=== PATIENT | female | born 1935 | race Caucasian/White ===

== ENCOUNTER 2017-04-28 09:54 | Outpatient (CLI) | payer MEDICARE, BC ==
--- NOTE | 2017-04-14 17:27 | RAD ---
LEFT HIP TWO VIEWS HISTORY: Fell 3 months ago. Left hip pain. COMPARISON: None. FINDINGS: There is no acute fracture or malalignment. The obturator ring is intact. SI joints are intact as well as the pubic symphysis. There is calcified granuloma projecting over the left thigh. IMPRESSION: No acute fracture or malalignment. No evidence of a healing fracture. POS: [facility]
--- NOTE | 2017-04-28 12:09 | CT ---
CT ABDOMEN AND PELVIS WITH IV AND ORAL CONTRAST: HISTORY: Colon cancer with metastases. Restaging. COMPARISON: 01/17/17. FINDINGS: Mild scarring remains at the lung bases. Calcified granulomata within the liver and spleen are cons istent with healed granulomatous disease. 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 The lobular partially cystic adenopathy at the right iliac bifurcation is 3.9 x 3.9 x 3.4 cm greates t diameters, unchanged in appearance from the previous exam. The tiny mesenteric nodule just deep t o the umbilicus is stable. No new adenopathy or mesenteric nodules are apparent. Postoperative and degenerative changes of the lumbar spine are again demonstrated. There is calcifi cation in the arterial structures. IMPRESSION: Stable CT appearance of the cystic right iliac and mesenteric adenopathy. No new abnormalities are apparent. POS: [facility]
== END 2017-04-28 09:55 | disposition home or self-care (01) ==
LOC: SCSCT 09:54
PROVIDERS: ATTEND Internal Medicine Hematology & Oncology
DX: M25.552 Pain in left hip (principal)
CPT/HCPCS: 74177; 80053; 82248; 82378; 83615; 84100; 84550

== ENCOUNTER 2017-04-29 18:00 | Emergency (ER) | payer MEDICARE, BC ==
[2017-04-29 19:04] LABS: Hematocrit 30.1 % (36.0-47.0); Mean Platelet Volume 8.2 fL (7.4-10.4); Red Blood Cell (RBC) Count 3.09 mill/uL (4.20-5.40); White Blood Cell (WBC) Count 2.1 thou/uL (4.8-10.8)
[2017-04-29 19:18] LABS: ALT (SGPT) 22 U/L (8-55); AST (SGOT) 40 U/L (5-34); Alkaline Phosphatase 98 U/L (40-150); Anion Gap 17 mmol/L (10-20); BUN (Urea Nitrogen) 31 mg/dL (9.8-20.1); Bilirubin, Total 0.6 mg/dL (0.2-1.2); Calc. Creatinine Clearance 0 mL/min (70-130); Carbon Dioxide 21 mmol/L (23-31); Chloride 108 mmol/L (98-107); Estimated GFR-MDRD 50; Globulin 2.8 g/dL (2.4-3.5); Protein, Total 6.4 g/dL (6.0-8.3)
[2017-04-29 19:33] LABS: #Lymphocytes 0.5 thou/uL (1.20-3.40); #Monocytes 0.1 thou/uL (0.11-0.59); #Neutrophils 1.5 thou/uL (1.40-6.50); %Eosinophils 0.4 % (0.0-10.0); %Lymphocytes 24.1 % (21.0-51.0); %Monocytes 3.6 % (0.0-10.0); Anisocytosis SLIGHT = 6-15 cells (100X) (0-5/hpf); Hypochromia SLIGHT = 6-15 cells (100X) (0-5/hpf)
[2017-04-29 20:50] LABS: Bilirubin Negative (Negative); Blood, Urine Negative (Negative); Glucose, Urine (Dipstick) Negative (Negative); Ketone, Urine Negative (Negative); Nitrite Negative (Negative); Protein, Urine (Dipstick) Trace mg/dL (Neg-Trace); Urobilinogen 0.2 mg/dL (0.2-1.0)
[2017-04-29 20:52] LABS: Bacteria/HPF 1+ HPF (None Seen); Hyaline Casts/LPF 0-3 HYALINE CAST LPF (0-3 Hyaline)
--- NOTE | 2017-04-29 21:37 | CT ---
BRAIN CT WITHOUT IV CONTRAST 04/29/17 HISTORY: 82-year-old female with altered mental status. Atrophy and chronic white matter ischemic changes are noted. Sinuses and mastoids are clear. Stable appearance from 08/02/15. IMPRESSION: No mass or bleed or other significant acute intracranial process. Stable from prior study. POS: [facility]
--- NOTE | 2017-04-29 22:33 | RAD ---
CHEST ONE VIEW PORTABLE 04/29/17 HISTORY: 82-year-old female with malaise and altered mental status. COMPARISON: 08/18/15. FINDINGS: Right central line and injection port. Cardiomegaly with atherosclerosis of the aorta. Old granuloma tous disease. No confluent pneumonia, overt edema or pleural effusion. IMPRESSION: Cardiomegaly without confluent pneumonia or overt edema. Old granulomatous disease. Atherosclerosis of the aorta. Stable from prior study. POS: [facility]
== END 2017-04-29 21:50 | disposition home or self-care (01) ==
LOC: ERS 18:00
DX: N39.0 Urinary tract infection, site not specified (principal); I10 Essential (primary) hypertension; F32.9 Major depressive disorder, single episode, unspecified; Z86.73 Personal history of transient ischemic attack (TIA), and cerebral infarction without residual deficits; Z79.2 Long term (current) use of antibiotics; Z79.82 Long term (current) use of aspirin; Z79.899 Other long term (current) drug therapy
CPT/HCPCS: 70450; 71010; 80053; 81003; 81015; 82248; 82378; 83615; 84100; 84550; 85025; 96374; J0360

== ENCOUNTER 2017-06-11 09:03 | Day surgery (SDC) | payer MEDICARE, BC ==
[2017-06-11] MEDS ORDERED: Acetaminophen 500 MG TAB PO SCH (12:30)
[2017-06-11] MEDS ORDERED: diphenhydrAMINE 25 MG CAP PO SCH (12:30)
[2017-06-11 15:14] VITALS: BP 175/72; TEMP 98.9
[2017-06-11 16:23] LABS: #Eosinphils 0.1 thou/uL (0.0-0.7); #Lymphocytes 1.2 thou/uL (1.20-3.40); #Monocytes 0.2 thou/uL (0.11-0.59); #Neutrophils 1.7 thou/uL (1.40-6.50); %Lymphocytes 37.6 % (21.0-51.0); %Monocytes 5.6 % (0.0-10.0); Hematocrit 31.8 % (36.0-47.0); Mean Platelet Volume 8.8 fL (7.4-10.4); Red Blood Cell (RBC) Count 3.47 mill/uL (4.20-5.40); White Blood Cell (WBC) Count 3.3 thou/uL (4.8-10.8)
== END 2017-06-11 15:25 | disposition home or self-care (01) ==
LOC: ONC/OP 09:03
PROVIDERS: ATTEND Internal Medicine Hematology & Oncology
PROC: 30233N1 Transfusion of Nonautologous Red Blood Cells into Peripheral Vein, Percutaneous Approach (ICD-10-PCS; principal; 2017-06-11)
DX: D64.9 Anemia, unspecified (principal); D69.59 Other secondary thrombocytopenia; M19.90 Unspecified osteoarthritis, unspecified site; K21.9 Gastro-esophageal reflux disease without esophagitis; H91.90 Unspecified hearing loss, unspecified ear; Z79.82 Long term (current) use of aspirin; Z79.1 Long term (current) use of non-steroidal anti-inflammatories (NSAID); Z79.899 Other long term (current) drug therapy; Z88.2 Allergy status to sulfonamides; Z90.710 Acquired absence of both cervix and uterus; Z90.49 Acquired absence of other specified parts of digestive tract; Z98.890 Other specified postprocedural states; Z86.73 Personal history of transient ischemic attack (TIA), and cerebral infarction without residual deficits; Z85.828 Personal history of other malignant neoplasm of skin; Z85.038 Personal history of other malignant neoplasm of large intestine
CPT/HCPCS: 36430; 85025; 86850; 86900; 86901; P9016

== ENCOUNTER 2017-06-23 09:17 | Inpatient (IN) | payer MEDICARE, BC ==
[2017-06-23 10:20] LABS: #Lymphocytes 0.6 thou/uL (1.20-3.40); #Monocytes 0.6 thou/uL (0.11-0.59); #Neutrophils 4.8 thou/uL (1.40-6.50); %Basophils 0.3 % (0.0-1.0); %Eosinophils 0.2 % (0.0-10.0); %Lymphocytes 10.1 % (21.0-51.0); %Monocytes 10.2 % (0.0-10.0); Hematocrit 35.1 % (36.0-47.0); Mean Platelet Volume 9.4 fL (7.4-10.4); Red Blood Cell (RBC) Count 3.76 mill/uL (4.20-5.40); White Blood Cell (WBC) Count 6.1 thou/uL (4.8-10.8)
--- NOTE | 2017-06-23 10:33 | CT ---
CT HEAD WITHOUT CONTRAST: Date: 06/23/17 Multiple axial tomograms obtained through head without IV enhancement. HISTORY: Fall. Confusion. FINDINGS: Ventricles have normal size and appearance. Moderate chronic ischemic white matter change. Mild corti maria m volume loss. No evidence of acute hemorrhage, mass, or infarct. IMPRESSION: Chronic changes as described. No evidence of acute abnormality. POS: [facility]
[2017-06-23 10:38] LABS: ALT (SGPT) 16 U/L (8-55); AST (SGOT) 28 U/L (5-34); Alkaline Phosphatase 77 U/L (40-150); Anion Gap 9 mmol/L (10-20); BUN (Urea Nitrogen) 20 mg/dL (9.8-20.1); Bilirubin, Total 1.3 mg/dL (0.2-1.2); Calc. Creatinine Clearance 0 mL/min (70-130); Calcium 9.2 mg/dL (7.8-10.44); Carbon Dioxide 26 mmol/L (23-31); Chloride 105 mmol/L (98-107); Estimated GFR-MDRD 76; Globulin 2.5 g/dL (2.4-3.5)
[2017-06-23 10:43] LABS: Troponin I 0.062 ng/mL (< 0.028)
--- NOTE | 2017-06-23 10:53 | RAD ---
EXAM: ONE VIEW CHEST: HISTORY: Altered mental status. COMPARISON: 04/29/17. FINDINGS: Stable right-sided MediPort catheter. Stable calcification in the AP window. Stable atherosclerosis of the aorta. Heart is enlarged. The pulmonary vessels and hilum are normal. Costophrenic angles are clear. No mass. No consolidation. No pneumothorax or osseous abnormalities. Calcified granulo ma in the left lung is again noted. IMPRESSION: 1. Atherosclerosis. 2. No acute cardiopulmonary process. POS: [facility]
--- NOTE | 2017-06-23 10:55 | RAD ---
RIGHT ELBOW 4 VIEWS: HISTORY: Fall. Pain. COMPARISON: None. FINDINGS: No fracture. No cortical irregularity. No periosteal reaction. No significant joint effusion. IMPRESSION: No fracture. POS: [facility]
--- NOTE | 2017-06-23 10:57 | RAD ---
LEFT ANKLE 3 VIEWS: HISTORY: Fall. Pain. COMPARISON: None. FINDINGS: No significant soft tissue swelling. No fracture. Minimal spurring of the calcaneus. Joint space i s preserved. IMPRESSION: Unremarkable left ankle 3 views. POS: [facility]
--- NOTE | 2017-06-23 10:58 | RAD ---
RIGHT ANKLE 3 VIEWS: Date: 06/23/17 HISTORY: Fall. Pain. COMPARISON: None. FINDINGS: Mild lateral soft tissue swelling. Remote avulsive injury at the distal aspect of the lateral malleol us is noted. Acute fracture is not appreciated. No spurring of the calcaneus. IMPRESSION: Lateral soft tissue swelling, without evidence of fracture. POS: [facility]
[2017-06-23 11:32] LABS: Bilirubin Negative (Negative); Blood, Urine Small (Negative); Glucose, Urine (Dipstick) Negative (Negative); Ketone, Urine Negative (Negative); Nitrite Negative (Negative); Protein, Urine (Dipstick) Trace mg/dL (Neg-Trace); Urobilinogen 0.2 mg/dL (0.2-1.0)
[2017-06-23 11:35] LABS: Bacteria/HPF Rare-Few HPF (None Seen); Hyaline Casts/LPF 0-3 HYALINE CAST LPF (0-3 Hyaline); RBC/HPF 0-3 HPF (0-3)
[2017-06-23 14:48] VITALS: BMI 22.9
[2017-06-23 16:11] LABS: Troponin I 0.062 ng/mL (< 0.028)
[2017-06-23] MEDS ORDERED: Zolpidem Tartrate 5 MG TAB PO PRN (17:53)
[2017-06-23] MEDS ORDERED: Acetaminophen 325 MG TAB PO PRN (17:53)
[2017-06-23] MEDS ORDERED: Ondansetron ODT 4 MG TAB PO PRN (17:53)
--- NOTE | 2017-06-23 20:58 | HP ---
DATE OF ADMISSION: 06/23/2017 HISTORY OF PRESENT ILLNESS: The patient is an 82-year-old white female who suffered multiple falls t hrough this past weekend, she was found at home apparently been on the floor for several hours. She had multiple contusions about the head, wrist, ankle, arms. She states she does not actually recall falling. She was confused. The family took her to the nearest emergency room. She was seen and romain luated in the emergency room, remarkably really did not show any significant injuries other than the multiple bruises to the scalp with contusions and swelling as well as bruises to the left and right a rm and elbow, left and right ankle. All laboratory workup was otherwise unremarkable. She has a known history of colon cancer. She has a known history of hypertension. She is currently in the mist of cancer therapy. Otherwise, she notes no other medical complaints. The family has now decided that she needed to have more extensive care at home. She can no longer live by herself, pos sibly looking a senior living versus long-term care at home. Otherwise, no other medical complaint s are noted. ALLERGIES: She is allergic to SULFA. CURRENT MEDICATIONS: Aggrenox 1 capsule b.i.d., Zetia 10 mg daily, metoprolol 50 mg daily, Myrbetriq 50 mg daily, biotin 15550 mcg daily, calcium vitamin D 1 tablet daily, meloxicam 7.5 mg daily, multi vitamin 1 daily, Ocuvite 1 tablet daily, omeprazole 40 mg daily. PAST MEDICAL HISTORY: Significant for the above noted colon cancer surgery. She also has a history of previous TIA. PAST SURGICAL HISTORY: Positive for laparoscopic cholecystectomy, hysterectomy, rotator cuff repair. PAST MEDICAL HISTORY: Positive for chemotherapy for colon cancer, iron deficient anemia, hypertensio n, gastroesophageal reflux disease, osteoarthritis, history of TIA in the past, history of overactive bladder. REVIEW OF SYSTEMS: Gastrointestinal: Negative. Genitourinary: Negative. Cardiovascular: Otherwise negative. Muscul oskeletal: Positive for multiple bruises and contusions as previously noted. PHYSICAL EXAMINATION: VITAL SIGNS: Temperature 97.4, pulse 62, blood pressure 194/79. GENERAL: She is alert, active, in no distress. HEENT: There are multiple contusions about the upper portion of the scalp in the right and left fron kendrick area extending almost to the forehead line. There is no evidence of any palpable masses. There is some bruising noted. Otherwise no other lesions are noted. There is a bruise and contusion noted to the right eye as well. Sclerae and conjunctivae are otherwise clear. NECK: Supple, full range of motion, no masses, no bruits. LUNGS: Clear. HEART: Reveals regular rate and rhythm without murmurs, gallops or rubs. ABDOMEN: Soft, nontender, bowel sounds are present and active. No hepatosplenomegaly is noted. EXTREMITIES: No clubbing, edema or cyanosis. There are multiple bruises noted at the left and right ankle. There is a bruise to the right elbow. NEUROLOGIC: She is alert. She is oriented x3. She is able to move all extremities on command. LABORATORY: Hemoglobin 10.7, hematocrit 35.1, white blood count 6.1. Sodium 136, potassium 4.3, chl oride 105, CO2 of 26, BUN 20, creatinine 0.73. Troponins are indeterminately elevated. Urinalysis o therwise clear. Multiple x-rays of the elbow, ankle and chest x-ray are clear. CT scan of the brain is otherwise normal. IMPRESSION: An 82-year-old female with a known history of colon cancer, is currently undergoing chem otherapy. She has suffered multiple falls with multiple contusions, she is no longer able to provide adequate care for herself. PLAN: The patient will be admitted and placed in for long-term placement either a senior living or long-term care at home. Her family has already considered long-term care, then contacted [facility] to provide that. I am in agreement with that she no longer can live by herself at all. Dora robb discussed with her and the family DNR status. She wishes to be a DNR. She has made this , and this status will be placed at her request.
[2017-06-23] MEDS ORDERED: FLU VACC TS2017-18 (>65YR) 0.5 ML SYRINGE IM ONE (21:00)
[2017-06-23] MEDS: Aggrenox 200-25mg CAP PO SCH (21:00)
--- NOTE | 2017-06-24 07:46 | PRG ---
DATE OF SERVICE: 06/24/2017 Ms. Harris is awake and alert, verbalizes no complaints. She is still probably having some mild pain . She said she slept well last night. PHYSICAL EXAMINATION: VITAL SIGNS: Temperature 97.5, BP 161/65, pulse 71, O2 sats 92% on room air. GENERAL: She appears to be alert, active, does not appear in any distress. She has multiple bruises still about her scalp, left knee and right elbow and ankles. LUNGS: Clear. HEART: Had a regular rate and rhythm with a very soft systolic murmur. IMPRESSION: 1. Status post multiple falls. 2. History of colon cancer. 3. Frailty of age. PLAN: We will wait for case management to come evaluate her for long-term care issues. The family has decided to try to do long-term care at home with in home services versus senior living. Hopefu lly, this can be arranged fairly quickly.
[2017-06-24] MEDS: Aggrenox 200-25mg CAP PO SCH ×2 (08:44→21:12)
[2017-06-24] MEDS: Meloxicam 15 MG TAB PO SCH (08:44)
[2017-06-24] MEDS: Ezetimibe 10 MG TAB PO SCH (08:44)
[2017-06-24] MEDS: Calcium Carbonate + Vit D 1 TAB PO SCH (08:44)
[2017-06-24] MEDS: Multivit, Therapeutic 1 TAB PO SCH (08:45)
[2017-06-24] MEDS: Vit A,C & E/Lutein/Minerals Tablet PO SCH (08:45)
[2017-06-24] MEDS ORDERED: Non-Formulary Item 1 EACH (Biotin [Mega Biotin] 10,000 MCG) PO SCH (09:00)
[2017-06-24] MEDS ORDERED: Loperamide HCl 2 MG CAP PO PRN (13:29)
[2017-06-24] MEDS: cloNIDine 0.1 MG TAB PO PRN (17:38)
[2017-06-25] MEDS: cloNIDine 0.1 MG TAB PO PRN (00:45)
--- NOTE | 2017-06-25 07:54 | PRG ---
DATE OF SERVICE: 06/25/2017 SUBJECTIVE: Ms. Harris is awake and alert. She is sitting in the chair, eating breakfast. She note d that she has trouble with her blood pressure last night. PHYSICAL EXAMINATION: VITAL SIGNS: Her blood pressure is 187/88, temperature 98.4, O2 sats 95%. LUNGS: Clear. HEART: Reveals no murmur. IMPRESSION: 1. Status post multiple falls. 2. History of colon cancer. 3. Hypertension. PLAN: 1. We will add amlodipine 2.5 mg p.o. daily to her antihypertensive regimen. 2. She possibly could be discharged today. We will check with the case management to see if all soc ial services has been put in place for her to be discharged.
[2017-06-25] MEDS: Vit A,C & E/Lutein/Minerals Tablet PO SCH (08:42)
[2017-06-25] MEDS: Multivit, Therapeutic 1 TAB PO SCH (08:42)
[2017-06-25] MEDS: Aggrenox 200-25mg CAP PO SCH (08:42)
[2017-06-25] MEDS: Calcium Carbonate + Vit D 1 TAB PO SCH (08:42)
[2017-06-25] MEDS: Ezetimibe 10 MG TAB PO SCH (08:42)
[2017-06-25] MEDS: Meloxicam 15 MG TAB PO SCH (08:44)
[2017-06-25 08:48] VITALS: BP 146/71; TEMP 97.7
[2017-06-25] MEDS ORDERED: Amlodipine 5 MG TAB PO SCH (09:00)
== END 2017-06-25 15:39 | disposition home health service (06) | DRG 376 ==
LOC: ERS 09:17 → T4-A 11:25
PROVIDERS: ADMIT Family Medicine; ATTEND Family Medicine
DX: C18.9 Malignant neoplasm of colon, unspecified (principal); I10 Essential (primary) hypertension; Z88.2 Allergy status to sulfonamides; Z86.73 Personal history of transient ischemic attack (TIA), and cerebral infarction without residual deficits; Z90.49 Acquired absence of other specified parts of digestive tract; Z90.710 Acquired absence of both cervix and uterus; S00.03XA Contusion of scalp, initial encounter; S00.83XA Contusion of other part of head, initial encounter; S60.219A Contusion of unspecified wrist, initial encounter; S50.02XA Contusion of left elbow, initial encounter; S50.01XA Contusion of right elbow, initial encounter; S90.02XA Contusion of left ankle, initial encounter; S90.01XA Contusion of right ankle, initial encounter; H11.31 Conjunctival hemorrhage, right eye; Z66 Do not resuscitate; Z87.891 Personal history of nicotine dependence
CPT/HCPCS: 36415; 70450; 71010; 80053; 81003; 81015; 82553; 84484; 85025; 93005; G8978-GP-CJ; G8979-GP-CI

== ENCOUNTER 2017-07-02 08:00 | Outpatient (CLI) | payer MEDICARE, BC | END 2017-07-02 08:01 | disposition home or self-care (01) | LOC: BICMAMMO 08:00 | PROVIDERS: ATTEND Family Medicine | DX: Z53.9 Procedure and treatment not carried out, unspecified reason (principal) ==

== ENCOUNTER 2017-09-04 08:15 | Outpatient (CLI) | payer MEDICARE, BC ==
[2017-09-04] MEDS ORDERED: Iopamidol 370 76% 100 ML VIAL ONE (09:00)
--- NOTE | 2017-09-04 11:45 | CT ---
EXAM: ABDOMEN CT WITH CONTRAST PELVIC CT WITH CONTRAST: HISTORY: Cecal cancer. Elevated CEA. COMPARISON: 04/28/17. TECHNIQUE: A postcontrast abdomen and pelvic CT are performed in the axial plane. Coronal reformatted images ar javier submitted for interpretation. FINDINGS: ABDOMEN CT: Calcified granuloma in the middle lobe. Scarring or atelectasis in the left lower lobe. Normal heart size. No significant pericardial fluid. Calcification of the aortic valve and mitral v alve. Atherosclerosis of a nonaneurysmal aorta. No periaortic fat stranding. Symmetric attenuation of the psoas muscles. No gastrohepatic, retrocrural, or periportal lymphadenopathy. The intra- and extrahepatic portal vein is patent. Liver, spleen, pancreas, and adrenal glands have appropriate attenuation. Subcentimeter hypodensity in the hepatic dome cannot be further characterized. Calcified granulomatous lesions in the spleen a nd liver are noted. The pancreas has mild atrophy. No inflammatory change. Symmetric attenuation o f the adrenal glands. Unremarkable gallbladder. Symmetric enhancement of the kidneys. Bilaterally, no obstructive uropathy. 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 There is no mesenteric mass, free air, or free fluid. There are enlarged right lower quadrant mesenteric lymph nodes which are similar to the previous exam ination. The largest lymph node currently measures 1.6 x 1.4 cm (previously measuring 1.5 x 1.7 cm). Gastric mucosa, duodenum, and multiple normal-caliber small bowel loops are noted. The residual colo n is unremarkable. No evidence of a colonic mass. PELVIC CT: The urinary bladder and left hemipelvis are unremarkable. Redemonstration of hypodense masses along the right external iliac chain. This conglomeration of mass currently measures 3.2 x 4.0 cm (previou sly measuring 3.4 x 3.9 cm. Additional masses are not appreciated. There are no lytic or blastic lesions in the osseous structures. Stable degenerative change. IMPRESSION: Redemonstration of lymphadenopathy in the right lower quadrant and stable hypodensities in the right hemipelvis. No appreciable change when compared to the prior examination. POS: [facility]
== END 2017-09-04 08:16 | disposition home or self-care (01) ==
LOC: SCSCT 08:15
PROVIDERS: ATTEND Internal Medicine Hematology & Oncology
DX: C18.0 Malignant neoplasm of cecum (principal); R59.0 Localized enlarged lymph nodes
CPT/HCPCS: 74177

== ENCOUNTER 2017-10-28 14:52 | Outpatient (CLI) | payer MEDICARE, BC ==
--- NOTE | 2017-10-28 16:15 | RAD ---
LUMBAR SPINE FOUR VIEWS: History: Low back pain since last week. Comparison: None. FINDINGS: There are five lumbar type vertebral bodies. No fracture. There are degenerative changes of the poste rior elements of L4-5 and L5-S1. In the neutral position there is 3.9 mm anterolisthesis of L4 upon L 5, 2.8 mm anterolisthesis of L4 upon L5, 6.7 mm anterolisthesis of L5 upon S1. Upon flexion there is 4 mm anterolisthesis of L3 upon L4. 6.5 mm anterolisthesis of L4 upon L5. 1.0 cm L5 upon S1. Upon extension there is 4.7 mm anterolisthesis 7.5 mm of L5 upon S1. IMPRESSION: Spondylolisthesis as above. POS: [facility]
== END 2017-10-28 14:53 | disposition home or self-care (01) ==
LOC: SCSRAD 14:52
PROVIDERS: ATTEND Family Medicine
DX: S33.6XXA Sprain of sacroiliac joint, initial encounter (principal); M43.16 Spondylolisthesis, lumbar region
CPT/HCPCS: 72100

== ENCOUNTER 2017-12-08 08:24 | Outpatient (CLI) | payer MEDICARE, BC ==
[2017-12-08] MEDS ORDERED: Iopamidol 370 76% 100 ML VIAL ONE (09:00)
--- NOTE | 2017-12-08 12:00 | CT ---
CT ABDOMEN AND PELVIS WITH IV AND ORAL CONTRAST: Date: 12/08/17 HISTORY: Colon cancer, rising CEA. COMPARISON: 09/04/17 and 04/28/17. FINDINGS: The lung bases are unremarkable. There are calcified granulomas in the liver and spleen. A tiny low d ensity lesion in the posterior segment of the right lobe of the liver is unchanged. No new liver lesi ons are identified. No calcified gallstones are seen. The pancreas is atrophic. Adrenal glands are n ormal. Duplicated collecting systems in the kidneys are again seen without evidence of renal mass or hydroureteronephrosis. No free air or free fluid is seen in the abdomen or pelvis. The largest right lower quadrant mesenteric lymph node measures 11.0 mm. Cystic lymphadenopathy in th e right iliac bifurcation lymphadenopathy shows interval improvement and measures 3.7 x 2.1 cm. Promi nent omental lymph nodes are stable. Fat-containing umbilical hernia again seen. The small bowel loops are not abnormally dilated. There is sigmoid diverticulosis. There are vascular calcifications without evidence of aneurysmal dilatation of the abdominal aorta. Degenerative change s are present in the spine. No osteolytic or osteoblastic lesions are identified. IMPRESSION: Mild interval reduction in the size of the right iliac and mesenteric lymphadenopathy since 09/04/17. POS: [facility]
== END 2017-12-08 08:25 | disposition home or self-care (01) ==
LOC: SCSCT 08:24
PROVIDERS: ATTEND Internal Medicine Hematology & Oncology
DX: C18.0 Malignant neoplasm of cecum (principal); R59.1 Generalized enlarged lymph nodes
CPT/HCPCS: 74177

== ENCOUNTER 2018-03-04 08:26 | Outpatient (CLI) | payer MEDICARE, BC ==
[2018-03-04] MEDS ORDERED: Iopamidol 370 76% 100 ML VIAL ONE (09:00)
--- NOTE | 2018-03-04 10:41 | CT ---
CT ABDOMEN AND PELVIS WITH CONTRAST: Date: 03/04/18 Multiple axial tomograms obtained through the abdomen and pelvis with IV enhancement. Oral contrast w as administered. INDICATION: Malignant neoplasm cecum. Follow-up colon cancer. COMPARISON: Recent exam of 12/08/17. FINDINGS: Images through the lung bases show no evidence of infiltrate or effusion. On the first image of the l susana base, there is a tiny, pleural based nodule in the right lateral lower lung measuring in the 2-3 mm range. Liver and splenic calcifications are again noted. A focal area of low attenuation in the superior rig ht lobe of the liver under the diaphragm measuring in the 4-5 mm range is stable from the prior exam. Spleen is otherwise unremarkable. Pancreas unremarkable. Adrenal glands unremarkable. Kidneys again show bilateral double collecting systems. There is no evid ence of hydronephrosis. Small bowel loops are normal. Patient is post right colectomy. Stool throughout the colon with diverticulosis of the sigmoid. Aorta normal caliber. Infraaortic left renal vein is incidentally noted. Umbilical hernia again noted with mesentery herniated through this defect. There are several focal no dular densities within this herniated mesentery which could represent enlarged lymph nodes. These bette ear more prominent than on the prior study, with at least one measuring up to 1.0 cm. There are three or four other small nodular opacities suggesting small lymph nodes within this umbilical hernia. A m esenteric node in the right lower quadrant measures 1.2 cm today, greatest craniocaudal dimension. Pr ior greatest craniocaudal measurement on this node was 1.6 cm. There is at least one adjacent small l ymph node measuring approximately 0.6 cm, which appears unchanged. A small mesenteric lymph node in t he anterior left lower quadrant is unchanged measuring approximately 5.0 mm. The right lower quadrant adenopathy which extends posteriorly to the iliac vessels is again seen. Thi s has a bilobed appearance. The anterior lobe with a focal calcification measured at 2.1 cm greatest dimension today is unchanged from the prior exam. The more posterior lobe of this adenopathy is again seen displacing bowel loops and abutting the psoas muscle laterally and the iliac artery posteriorly . This adenopathy is slightly larger today with coronal measurements recorded at 4.0 x 2.3 cm. Previo us coronal measurements were recorded at 3.0 x 2.1 cm. Osseous structures show severe degenerative changes in the lower lumbar spine. No lytic or blastic le erica identified. IMPRESSION: 1. There are increased number in size of soft tissue nodular opacities in the mesentery within the u mbilical hernia today. Finding would be consistent with enlarging lymph nodes and/or mesenteric impla nts, which have enlarged. 2. The adenopathy in the right lower quadrant is slightly larger in the coronal plane as noted above . 3. The left lower quadrant lymph node is unchanged. A right lower quadrant mesenteric lymph node is slightly smaller today as noted above. 4. Tiny low density focus in the liver is unchanged. POS: [facility]
== END 2018-03-04 08:27 | disposition home or self-care (01) ==
LOC: SCSCT 08:26
PROVIDERS: ATTEND Internal Medicine Hematology & Oncology
DX: C18.0 Malignant neoplasm of cecum (principal); K42.0 Umbilical hernia with obstruction, without gangrene; R59.0 Localized enlarged lymph nodes; R93.2 Abnormal findings on diagnostic imaging of liver and biliary tract; R93.8 Abnormal findings on diagnostic imaging of other specified body structures
CPT/HCPCS: 74177

== ENCOUNTER 2018-07-08 07:27 | Outpatient (CLI) | payer MEDICARE, BC ==
[2018-07-08] MEDS ORDERED: Iopamidol 370 76% 100 ML VIAL ONE (09:00)
--- NOTE | 2018-07-08 09:50 | CT ---
CT ABDOMEN AND PELVIS WITH IV CONTRAST: DATE: 07/08/2018. HISTORY: Malignant neoplasm of cecum. The patient complains of stomach cramping for 2-3 weeks along with cons tipation. The last chemotherapy treatment was on 06/08/2018. COMPARISON: 03/04/2018. FINDINGS: There is a large calcified left hilar lymph node. There are small bilateral pleural effusions which represents in-ventricle change. The punctate approximately 3 mm pulmonary nodule lateral aspect righ t middle lobe is again seen. No additional discrete noncalcified pulmonary nodule is seen at each juliana ng base. There has been interval development of a moderate to large amount of intraperitoneal free fluid seen throughout the abdomen. There are masses seen along the anterior upper abdomen related to peritoneal carcinomatosis. There were masses seen within the anterior abdomen on the prior exam, but the exten t of the peritoneal masses anteriorly has increased from the prior exam. The largest area of omental caking grossly measures 9.1 cm transverse x 1.6 cm AP. There are large heterogeneous lobulated masses seen in the pelvis bilaterally. A large heterogeneous mass on the right measures 7.5 cm x 9.4 cm x 6.2 cm in maximal dimensions. The heterogeneous mass i n the left adnexal region measures 8.6 cm x 5.9 cm x 3.5 cm in maximal dimensions. Calcified granulomata are seen throughout the liver and spleen. The pancreas, bilateral adrenal glands, and kidneys demonstrate a normal CT appearance. The urinary bladder is decompressed. The uterus is not visualized likely related to prior hysterectomy. There is evidence of a right crescencio colectomy. There is a small umbilical hernia which contains fat with peritoneal soft tissue densities related to carcinomatosis. Vascular calcification is seen in the abdominal aorta and involving the iliac arteries. Degenerative changes are seen in the spine. No lytic or sclerotic osseous lesions are appreciated. IMPRESSION: 1. Evidence of peritoneal carcinomatosis which has significantly increased compared to the prior exa m with peritoneal soft tissue masses seen predominantly within the upper abdomen with a few scattered deposits seen throughout the remainder of the abdomen. 2. Interval development of large heterogeneous bilateral pelvic masses. These larger masses are in the adnexal regions bilaterally and could be related metastatic disease involving the ovaries bilater ally. 3. Hysterectomy. 4. Interval development of moderate to large amount of intraperitoneal free fluid. 5. Mild cardiomegaly. 6. Small bilateral pleural effusions. 7. Stable tiny 2-3 mm pulmonary nodule right middle lobe. 8. Stable tiny subcentimeter hypodense focus in the posterior aspect right hepatic lobe. 9. Above findings discussed with Dr. Zarate on 07/08/18 at 1036 hours. POS: [facility]
== END 2018-07-08 07:28 | disposition home or self-care (01) ==
LOC: SCSCT 07:27
PROVIDERS: ATTEND Internal Medicine Hematology & Oncology
DX: C18.0 Malignant neoplasm of cecum (principal); C78.6 Secondary malignant neoplasm of retroperitoneum and peritoneum; K66.8 Other specified disorders of peritoneum; N85.8 Other specified noninflammatory disorders of uterus; I51.7 Cardiomegaly; J90 Pleural effusion, not elsewhere classified; R91.1 Solitary pulmonary nodule; R93.2 Abnormal findings on diagnostic imaging of liver and biliary tract; Z90.710 Acquired absence of both cervix and uterus
CPT/HCPCS: 74177; 82565

== ENCOUNTER 2018-07-22 12:05 | Day surgery (SDC) | payer MEDICARE, BC ==
[2018-07-22 13:06] LABS: #Lymphocytes 0.8 thou/uL (1.20-3.40); #Monocytes 0.5 thou/uL (0.11-0.59); #Neutrophils 7.2 thou/uL (1.40-6.50); %Eosinophils 0.4 % (0.0-10.0); %Lymphocytes 9.4 % (21.0-51.0); %Monocytes 5.4 % (0.0-10.0); %Neutrophils 84.8 % (42.0-75.0); Hemoglobin 11.3 g/dL (12.0-16.0); Mean Corpuscular HGB CONC 31.1 g/dL (32.0-36.0); Mean Corpuscular Hemoglobin 28.3 pg (27.0-31.0); Mean Corpuscular Volume 90.9 fL (78.0-98.0); Mean Platelet Volume 6.6 fL (7.4-10.4); Platelet Count 566 thou/uL (130-400); RBC Distribution Width 15.8 % (11.5-14.5); Red Blood Cell (RBC) Count 3.99 mill/uL (4.20-5.40); White Blood Cell (WBC) Count 8.4 thou/uL (4.8-10.8)
[2018-07-22 13:10] LABS: INR-International Normal Ratio 1.2; PTT 35.2 SEC (22.9-36.1); Prothrombin Time 14.9 SEC (12.0-14.7)
[2018-07-22 14:20] VITALS: BP 144/91; TEMP 97.9; BMI 21.6
--- NOTE | 2018-07-22 15:52 | ULT ---
ULTRASOUND ABDOMEN LIMITED: 07/22/18 HISTORY: Ascites. COMPARISON: CT abdomen and pelvis, 07/08/18. FINDINGS/IMPRESSION: The patient does have moderate volume ascites within the abdomen. The examination was not performed a s the patient is on platelet inhibiting medications. Patient is scheduled for next week when it is sa noel to perform. The patient voiced understanding as well as the patient's daughter. POS: [facility]
== END 2018-07-22 14:00 | disposition home or self-care (01) ==
LOC: ULT 12:05
PROVIDERS: ATTEND Internal Medicine Hematology & Oncology
DX: R18.8 Other ascites (principal); I10 Essential (primary) hypertension; E78.5 Hyperlipidemia, unspecified; M19.90 Unspecified osteoarthritis, unspecified site; K21.9 Gastro-esophageal reflux disease without esophagitis; Z53.09 Procedure and treatment not carried out because of other contraindication; Z79.899 Other long term (current) drug therapy; Z79.1 Long term (current) use of non-steroidal anti-inflammatories (NSAID); Z88.2 Allergy status to sulfonamides
CPT/HCPCS: 76705; 85025; 85610; 85730

== ENCOUNTER 2018-07-30 08:42 | Day surgery (SDC) | payer MEDICARE, BC ==
[2018-07-30] MEDS ORDERED: Sodium Bicarbonate 2.5 MEQ/5 ML VIAL ONE (08:45)
--- NOTE | 2018-07-30 11:18 | ULT ---
ULTRASOUND GUIDED PARACENTESIS: DATE: 07/30/2018. HISTORY: Colon cancer with local lymphatic invasion. The patient has ascites. TECHNIQUE: After informed consent was obtained, the patient was placed on the sonography table in the supine pos ition. Limited sonographic evaluation again was performed. An area in the mid axillary line left mi d abdomen was marked, and the area was then meticulously prepped and draped in the usual sterile fash ion. The skin and subcutaneous tissues were infiltrated with buffered 1% Lidocaine for local anesthe mat. S small skin incision was made. Utilizing concurrent real-time ultrasound guidance, a 19-gauge [place] needle with 5 [place] sheath was advanced into the abdomen. After return of fluid, the sheath was adv anced, and the needle was removed. Approximately 4 L of clear straw-colored fluid was aspirated. Th e catheter was removed, and hemostasis was achieved with direct pressure. A dry sterile dressing was placed. The patient tolerated the procedure well and without immediate complication. IMPRESSION: Technically successful ultrasound-guided paracentesis. POS: [facility]
[2018-07-30 12:28] VITALS: BP 121/77; TEMP 98
== END 2018-07-30 10:00 | disposition home or self-care (01) ==
LOC: ULT 08:42
PROVIDERS: ATTEND Internal Medicine Hematology & Oncology
PROC: 0W9G3ZZ Drainage of Peritoneal Cavity, Percutaneous Approach (ICD-10-PCS; principal; 2018-07-30)
DX: R18.8 Other ascites (principal); C18.0 Malignant neoplasm of cecum; C77.9 Secondary and unspecified malignant neoplasm of lymph node, unspecified; E78.5 Hyperlipidemia, unspecified; I10 Essential (primary) hypertension; M19.90 Unspecified osteoarthritis, unspecified site; K21.9 Gastro-esophageal reflux disease without esophagitis; Z79.1 Long term (current) use of non-steroidal anti-inflammatories (NSAID); Z79.82 Long term (current) use of aspirin; Z79.899 Other long term (current) drug therapy; Z88.2 Allergy status to sulfonamides; Z90.49 Acquired absence of other specified parts of digestive tract
CPT/HCPCS: 49083